=== PATIENT | female | born 1980 | race Caucasian/White ===

== ENCOUNTER → 2018-01-11 | Outpatient (CLI) | payer MEDICAID | LOC: BRMIMAGING 08:45 | PROVIDERS: ATTEND Obstetrics & Gynecology | DX: N60.01 Solitary cyst of right breast (principal) | CPT/HCPCS: 76641-PO ==

== ENCOUNTER 2018-01-27 16:19 | Emergency (ER) | payer MEDICAID ==
[2018-01-27] MEDS ORDERED: NS 1,000 ML IV ONE (16:34)
[2018-01-27] MEDS ORDERED: ONDANSETRON 4 MG/2 ML VIAL IVP ONE (16:41)
[2018-01-27] MEDS ORDERED: HYDROmorphONE/DILAUDID 2 MG/ML INJ IVP ONE (16:41)
--- NOTE | 2018-01-27 16:47 | EDPHY ---
H & P Time Seen by Provider: 01/27/18 16:30 HPI/ROS: HPI Abdominal pain. 37-year-old female by private vehicle with her mother. This patient reports right lower quadrant abdominal pain ongoing for about a month. She reports that this was attributed to a ruptured ovarian cyst. It got better but then yesterday started bothering her more. She also reports onset of epigastric and right upper quadrant pain yesterday which is not as severe. She describes the pain is coming on in waves. She describes it as crampy and achy. She reports that she has also had issues with constipation but was able to have a bowel movement today. This was described as solid and then followed by diarrhea which she has had the remainder of the day. Last menstrual period was a couple of weeks ago. Last meal was just prior to arrival this consisted of a snack bar. She has had some nausea but no vomiting. She denies any bloody or melenic stool. Significant past surgical history includes appendectomy and cholecystectomy. ROS: Constitutional: No fever, no chills. No weakness. Eyes: No discharge. No changes in vision. ENT: No sore throat. No nasal congestion or rhinorrhea. Respiratory: No cough. No shortness of breath. Cardiac: No chest pain, no palpitations. Gastrointestinal: As above. Genitourinary: No hematuria. No dysuria or increased frequency with urination. Musculoskeletal: No back pain. No neck pain. No myalgias or arthralgias. Skin: No rashes. Neurological: No headache. No focal weakness or altered sensation. Past medical history: Tubal ligation, bowel resection. As above. Social history: She is here with her mother. Denies alcohol. Nonsmoker. Physical Exam: General Appearance: Alert, she does not appear in distress. This patient is responding to questions appropriately and in full sentences. This patient appears well-hydrated and well-nourished. Eyes: Pupils equal and round no pallor or injection. No lid edema, erythema or injection. Respiratory: There are no retractions, lungs are clear to auscultation with good air movement bilaterally. Cardiovascular: Regular rate and rhythm. No murmur. Gastrointestinal: Abdomen is soft with mild and vague tenderness on palpation of the right lower quadrant, no tenderness on palpation of the right upper quadrant, epigastric or remainder of the abdomen, no masses, bowel sounds normal. No focal tenderness at Burney's point. No Mota sign. Neurological: Motor sensory function is grossly intact. Cranial nerves are normal. Gait is normal. Skin: Warm and dry, no rashes. Musculoskeletal: Neck is supple and nontender. Extremities are symmetrical. All joints range without pain or impingement. Psychiatric: No agitation. No depression. Database: EKG: Imaging: Upright abdominal x-ray series: Significant for constipation. No free air. No obstructive process. Interpreted by me. Pelvic complete ultrasound: No evidence of torsion. This is a normal study. Results were discussed with staff radiologist Dr. Sebastian Wesley. Procedures: Emergency department course: Triage vital signs reviewed and are within normal limits. She is afebrile. IV was placed. She was placed on a monitor. She was started on IV normal saline with 1 L to be given over the next hour. She states that she cannot take NSAIDs secondary to stomach issues. She will be given 0.5 mg of IV hydromorphone initially and 4 mg of IV Zofran. This will be repeated as needed for pain. Upright abdominal x-ray to be obtained to evaluate for constipation versus obstructive process. Pelvic ultrasound also to be obtained to evaluate for ovarian cyst versus torsion. Patient consents to workup. 6:15 p.m., the patient was re-evaluated. Resting comfortably at this time. Results of diagnostic workup discussed with her. Repeat abdominal exam she is soft, nontender nondistended. Her presentation is consistent with constipation. I will send her home with magnesium citrate. She will also be prescribed a 1/2 prep of GoLYTELY should she need this for further treatment. She and her mother in agreement with this plan. Follow-up and return to emergency department precautions have been reviewed with her. All of her questions were answered. She was discharged from the emergency department in good condition. Differential Diagnosis: The differential diagnosis on this patient includes but is not limited to ovarian cysts, gastritis, constipation. Ectopic , ovarian torsion, bowel obstruction/volvulus, appendicitis, cholecystitis, pancreatitis unlikely. This represents a partial list of diagnoses considered. These considerations are based on history, physical exam, past history, reassessment and diagnostic testing. Smoking Status: Light smoker Constitutional: Initial Vital Signs Temperature (C) 36.9 C 01/27/18 16:28 Heart Rate 95 01/27/18 16:28 Respiratory Rate 16 01/27/18 16:28 Blood Pressure 119/82 H 01/27/18 16:28 O2 Sat (%) 98 01/27/18 16:28 O2 Delivery Mode Room Air Allergies/Adverse Reactions: No Known Allergies Allergy (Verified 01/27/18 16:28) Home Medications: Medication Instructions Recorded Herbals/Supplements -Info Only 01/17/18 Wellbutrin Sr 01/17/18 Peg 3350/Na Sulf,Bicarb,Cl/KCl 2,000 ml PO ONCE PRN #1 btl 01/27/18 [Golytely (RX)] Medical Decision Making - Diagnostics Imaging Results: Imaging Impressions Abdomen X-Ray 01/27/18 16:41 Impression: 1. Constipation. 2. Elongated right lobe of the liver, which could be related to a Jimenez's lobe (normal variant). Pelvic/Renal Ultrasound 01/27/18 16:41 Impression: Normal pelvic ultrasound. Findings discussed with Ranjana Tran MD 01/27/2018 at 18:16. - Data Points Laboratory Results: Laboratory Results 01/27/18 16:51 01/27/18 16:51 01/27/18 01/27/18 01/27/18 17:43 16:51 16:51 WBC RBC Hgb Hct MCV MCH MCHC RDW Plt Count MPV Neut % (Auto) Lymph % (Auto) Collier % (Auto) Eos % (Auto) Baso % (Auto) Nucleat RBC Rel Count Absolute Neuts (auto) Absolute Lymphs (auto) Absolute Monos (auto) Absolute Eos (auto) Absolute Basos (auto) Absolute Nucleated RBC Immature Gran % Immature Gran # Sodium 140 mEq/L mEq/L (135-145) Potassium 4.1 mEq/L mEq/L (3.3-5.0) Chloride 103 mEq/L mEq/L (97-110) Carbon Dioxide 24 mEq/l mEq/l (22-31) Anion Gap 13 mEq/L mEq/L (6-14) BUN 10 mg/dL mg/dL (7-23) Creatinine 0.7 mg/dL mg/dL (0.6-1.0) Estimated GFR > 60 Glucose 100 mg/dL mg/dL (70-100) Calcium 10.1 mg/dL mg/dL (8.5-10.4) Total Bilirubin 0.6 mg/dL mg/dL (0.1-1.4) Conjugated Bilirubin 0.3 mg/dL mg/dL (0.0-0.5) Unconjugated Bilirubin 0.3 mg/dL mg/dL (0.0-1.1) AST 27 IU/L IU/L (14-46) ALT 21 IU/L IU/L (9-52) Alkaline Phosphatase 49 IU/L IU/L (38-126) Total Protein 7.5 g/dL g/dL (6.3-8.2) Albumin 4.6 g/dL g/dL (3.5-5.0) Lipase 84 IU/L IU/L (23-300) Beta HCG, Qual NEGATIVE Urine Color Pending Urine Appearance Pending Urine pH Pending Ur Specific Fonda Pending Urine Protein Pending Urine Ketones Pending Urine Blood Pending Urine Nitrate Pending Urine Bilirubin Pending Urine Urobilinogen Pending Ur Leukocyte Esterase Pending Urine RBC Pending Urine WBC Pending Ur Epithelial Cells Pending Urine Glucose Pending 01/27/18 16:51 WBC 8.46 10^3/uL 10^3/uL (3.80-9.50) RBC 4.85 10^6/uL 10^6/uL (4.18-5.33) Hgb 14.6 g/dL g/dL (12.6-16.3) Hct 41.6 % % (38.0-47.0) MCV 85.8 fL fL (81.5-99.8) MCH 30.1 pg pg (27.9-34.1) MCHC 35.1 g/dL g/dL (32.4-36.7) RDW 12.6 % % (11.5-15.2) Plt Count 333 10^3/uL 10^3/uL (150-400) MPV 9.0 fL fL (8.7-11.7) Neut % (Auto) 67.1 % % (39.3-74.2) Lymph % (Auto) 23.9 % % (15.0-45.0) Collier % (Auto) 7.1 % % (4.5-13.0) Eos % (Auto) 1.3 % % (0.6-7.6) Baso % (Auto) 0.5 % % (0.3-1.7) Nucleat RBC Rel Count 0.0 % % (0.0-0.2) Absolute Neuts (auto) 5.68 10^3/uL 10^3/uL (1.70-6.50) Absolute Lymphs (auto) 2.02 10^3/uL 10^3/uL (1.00-3.00) Absolute Monos (auto) 0.60 10^3/uL 10^3/uL (0.30-0.80) Absolute Eos (auto) 0.11 10^3/uL 10^3/uL (0.03-0.40) Absolute Basos (auto) 0.04 10^3/uL 10^3/uL (0.02-0.10) Absolute Nucleated RBC 0.00 10^3/uL 10^3/uL (0-0.01) Immature Gran % 0.1 % % (0.0-1.1) Immature Gran # 0.01 10^3/uL 10^3/uL (0.00-0.10) Sodium Potassium Chloride Carbon Dioxide Anion Gap BUN Creatinine Estimated GFR Glucose Calcium Total Bilirubin Conjugated Bilirubin Unconjugated Bilirubin AST ALT Alkaline Phosphatase Total Protein Albumin Lipase Beta HCG, Qual Urine Color Urine Appearance Urine pH Ur Specific Fonda Urine Protein Urine Ketones Urine Blood Urine Nitrate Urine Bilirubin Urine Urobilinogen Ur Leukocyte Esterase Urine RBC Urine WBC Ur Epithelial Cells Urine Glucose Medications Given: Discontinued Medications Hydromorphone HCl (Dilaudid) 0.5 mg IVP EDNOW ONE Stop: 01/27/18 16:42 Last Admin: 01/27/18 17:43 Dose: 0.5 mg Sodium Chloride (Ns) 1,000 mls @ 0 mls/hr IV EDNOW ONE; Wide Open PRN Reason: Protocol Stop: 01/27/18 16:35 Last Admin: 01/27/18 17:42 Dose: 1,000 mls Magnesium Citrate (Magnesium Citrate) 300 ml PO ONCE ONE Stop: 01/27/18 17:58 Last Admin: 01/27/18 18:11 Dose: 1 btl Ondansetron HCl (Zofran) 4 mg IVP EDNOW ONE Stop: 01/27/18 16:42 Last Admin: 01/27/18 17:43 Dose: 4 mg Departure - Departure Disposition: Home, Routine, Self-Care Clinical Impression: Abdominal pain, Constipation Condition: Good Instructions: Constipation (ED) Additional Instructions: Read and follow provided instructions. Follow-up with your primary care physician in 1-2 days for re-evaluation. Take medication as prescribed for constipation. If magnesium citrate does not give you significant relief, fill prescription for 1/2 prep of GoLYTELY. Take as directed. Return to the emergency department for worsening abdominal pain, vomiting or other serious concerns. Referrals: Thais Cosby, SENIOR [employer]IC DESIGN ENGINEER [Primary Care Provider] - As per Instructions Prescriptions: Peg 3350/Na Sulf,Bicarb,Cl/KCl [Golytely (RX)] 2,000 ml PO ONCE PRN #1 btl PRN Reason: Constipation
[2018-01-27 17:02] LABS: PLATELET COUNT 333 10^3/uL (150-400)
[2018-01-27] MEDS ORDERED: MAGNESIUM CITRATE 300 ML BOTTLE PO ONE (17:57)
[2018-01-27 18:13] VITALS: BP 131/83
== END 2018-01-27 18:33 | disposition home or self-care (01) ==
DX: K59.00 Constipation, unspecified (principal)
CPT/HCPCS: 96374; J1170; J2405

== ENCOUNTER 2018-04-05 07:19 | Observation (INO) | payer MEDICAID ==
--- NOTE | 2018-04-04 16:59 | PDGENHP ---
History and Physical - Chief Complaint Preop: ANGUS Malloy, cysto - History of Present Illness Alvin is a 37 yo who originally saw me in clinic regarding abnormal pap , long history of menorrhagia and dysmenorrhea and ovarian cyst. 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 She had a negative EBX early in 2018. She also had a 4cm left ovarian cyst by US earlier in the year which resolved on its own on subsequent US here with our clinic. Ultimately her US was otherwise negative for fibroids or other obvious anatomic pathology - but still very bothered by severe dymenorrhea and heavy/ unpredictable periods. Currently on OCPs (Ashley) which are not helping. Has tried and filed other OCP's in the past as well as IUD. Very interested in hysterectomy. H/o two ectopic pregnancies in the past and has since had a tubal ligation - also does not want a failure of BC and having to deal with another ectopic potentially. History Information - Allergies/Home Medication List Allergies/Adverse Reactions: No Known Allergies Allergy (Verified 01/27/18 16:28) Home Medications: Bupropion HCl [Wellbutrin Xl] 300 mg PO DAILY 01/17/18 [Last Taken Unknown] I have personally reviewed and updated: family history, medical history, social history, surgical history - Past Medical History Additional medical history: Chronic conspitation, h/o ectopic , h/o abnormal pap, dysmenorrhea, abnormal uterine bleeding. Also anxiety - Surgical History Additional surgical history: 2002 (Appendectomy requiring partial bowel resection). 2011 Cholecystectomy LS. 2011 Tubal ligation - Family History Additional family history: Breast - Grandmother, "late 20s". Colon - Grandmother - Social History Smoking Status: Former smoker Alcohol Use: Occasionally Drug Use: None Review of Systems Review of Systems: ROS: 10pt was reviewed & negative except for what was stated in HPI & below Physical Exam Physical Exam: In office: NAD, WD WN Belly is soft, old surgical scars well healed Lab Data & Imaging Review Laboratory Tests 01/06/18 01/27/18 01/27/18 10:24 14:24 16:51 Hgb Hct Creatinine 0.7 Iron 92.0 TIBC 476 Iron Saturation 19 L AST 27 ALT 21 Alkaline Phosphatase 49 Amylase 62 Lipase 84 TSH 1.900 04/01/18 13:34 Hgb 13.8 Hct 41.7 Creatinine Iron TIBC Iron Saturation AST ALT Alkaline Phosphatase Amylase Lipase TSH Imaging Review: [facility] X Ray [facility] [place] [address] [phone] Pt Name: ALVIN LARSON Report Number: [id number] : Unit Number: [id number] Ordering Phys: Ranjana Tran MD Pt Type: REG ER Date of Service: 01/27/18 Acct Num: [id number] X Ray Abdomen 1 View Upright Abdomen History: Abd Pain. Comparison: None available. Findings : Moderate stool is present in the proximal and transverse colon. Bowel gas pattern is otherwise normal. There is no free air. The right lobe of the liver is elongated. No definite renal or ureteral calcifications are identified. Mild rightward curvature of the lumbar spine is present. Cholecystectomy clips are present. Impression: 1. Constipation. 2. Elongated right lobe of the liver, which could be related to a Jimenez's lobe (normal variant). Assessment & Plan Assessment: Preop: RaTLH, BS, cysto - for AUB and dysmenorrhea - Weight-based Ancef, routine pre-op orders. - No labs needed morning of. - Pyridium 200mg PO x 1 PREOP. - Will stay overnight likely 1 night. - RBA discussed and consents signed in clinic. SAURABH
[2018-04-05] MEDS ORDERED: ceFAZolin 2 GM/DEXTROSE 100 ML IV ONE (07:27)
[2018-04-05] MEDS ORDERED: LR 1,000 ML IV ONE (07:27)
[2018-04-05] MEDS ORDERED: PHENAZOPYRIDINE HCL 200 MG TAB PO ONE (07:27)
[2018-04-05] MEDS ORDERED: MIDAZOLAM 2 MG/2 ML VIAL IVP ONE (08:27)
[2018-04-05] MEDS ORDERED: LIDOCAINE 2% 5 ML SDV ONE (08:31)
[2018-04-05] MEDS ORDERED: ONDANSETRON 4 MG/2 ML VIAL ONE (08:31)
[2018-04-05] MEDS ORDERED: KETOROLAC 30 MG/1 ML SDV ONE (08:31)
[2018-04-05] MEDS ORDERED: DEXAMETHASONE 4 MG/ML VIAL ONE (08:31)
[2018-04-05] MEDS ORDERED: PROPOFOL/EMULSION 500 MG/50 ML BOTTLE IV ONE ×3 (08:32→10:51)
[2018-04-05] MEDS ORDERED: fentaNYL 100 MCG/2 ML INJ ONE ×3 (08:32→12:20)
--- NOTE | 2018-04-05 09:11 | PDANEPAE ---
ANE History of Present Illness abnormal uterine bleeding, here for robotic hysterectomy and BSO ANE Past Medical History - Cardiovascular History Hx Hypertension: No Hx Arrhythmias: No Hx Chest Pain: No Hx Coronary Artery / Peripheral Vascular Disease: No Hx CHF / Valvular Disease: No Hx Palpitations: No Cardiovascular History Comment: BP RUNS LOW - Pulmonary History Hx COPD: No Hx Asthma/Reactive Airway Disease: No Hx Recent Upper Respiratory Infection: No Hx Oxygen in Use at Home: No Hx Sleep Apnea: No Sleep Apnea Screening Result - Last Documented: Negative Pulmonary History Comment: QUIT SMOKING 02/03 - Neurologic History Hx Cerebrovascular Accident: No Hx Seizures: No Hx Dementia: No - Endocrine History Hx Diabetes: No - Renal History Hx Renal Disorders: No - Liver History Hx Hepatic Disorders: No - Neurological & Psychiatric Hx Hx Neurological and Psychiatric Disorders: Yes Neurological / Psychiatric History Comment: ANXIETY/DEPRESSION - Cancer History Hx Cancer: No - Congenital Disorder History Hx Congenital Disorders: No - GI History Hx Gastrointestinal Disorders: Yes Gastrointestinal History Comment: CONSTIPATION - Other Health History Other Health History: MILD ANEMIA - Chronic Pain History Chronic Pain: No - Surgical History Prior Surgeries: APPENDECTOMY. SML BOWEL RESECTION/APPY. CHOLECYSTECTOMY 2011. TUBAL LIG 2011. TONSILLECTOMY ANE Review of Systems Review of Systems: - Exercise capacity METS (RN): 4 METS ANE Patient History - Allergies Allergies/Adverse Reactions: No Known Allergies Allergy (Verified 01/27/18 16:28) - Home Medications Home Medications: Bupropion HCl [Wellbutrin Xl] 300 mg PO DAILY 01/17/18 [Last Taken 04/05/18 06: 00] - NPO status NPO Since - Liquids (Date): 04/05/18 NPO Since - Liquids (Time): 06:00 NPO Since - Solids (Date): 04/04/18 NPO Since - Solids (Time): 22:00 - Smoking Hx Smoking Status: Former smoker - Alcohol Use Alcohol Use: Occasionally - Family Anes Hx Family Hx Anesthesia Complications: SISTER SLOW TO AWAKEN ANE Labs/Vital Signs - Vital Signs Blood Pressure: 116/78 Heart Rate: 84 Respiratory Rate: 14 O2 Sat (%): 96 Height: 167.64 cm Weight: 65.771 kg ANE Physical Exam - Airway Neck exam: FROM Mallampati Score: Class 1 Mouth exam: poor dentition - Pulmonary Pulmonary: no respiratory distress - Cardiovascular Cardiovascular: regular rate and rhythym - ASA Status ASA Status: II ANE Anesthesia Plan Anesthesia Plan: general endotracheal anesthesia Total IV Anesthesia: Yes
[2018-04-05] MEDS ORDERED: SCOPOLAMINE HYDROBROMIDE 1 MG/3 DAYS PATCH TD SCH (09:15)
[2018-04-05] MEDS ORDERED: BUPIVACAINE/EPI 0.5% 30 ML SDV ONE (09:31)
[2018-04-05] MEDS ORDERED: SUGAMMADEX SODIUM 200 MG/2 ML VIAL IVP ONE (11:46)
[2018-04-05] MEDS ORDERED: NALOXONE HCL 0.4 MG/ML INJ IVP PRN (11:52)
[2018-04-05] MEDS ORDERED: MEPERIDINE 25 MG/0.5 ML AMP IVP PRN (11:52)
[2018-04-05] MEDS ORDERED: LR 500 ML IV PRN (11:52)
[2018-04-05] MEDS ORDERED: ACETAMINOPHEN 500 MG TAB PO PRN (11:52)
[2018-04-05] MEDS ORDERED: oxyCODONE IR 5 MG TAB PO PRN (11:52)
[2018-04-05] MEDS ORDERED: HYDROmorphONE/DILAUDID 2 MG/ML INJ ONE (12:20)
[2018-04-05] MEDS ORDERED: DIAZEPAM 5 MG/ML 1 ML SYR ONE (12:20)
--- NOTE | 2018-04-05 12:20 | POSTANESTH ---
Post Anesthetic Evaluation Cardiovascular Status: Normal, Stable Respiratory Status: Normal, Stable Level of Consciousness/Mental Status: Can Participate in Eval, Moderately Sleepy Pain Control: Adequate, Prn Tx Ordered Nausea/Vomiting Control: Adequate, Prn Tx Ordered Complications Possibly Related to Anesthesia: None Noted
[2018-04-05] MEDS: fentaNYL 100 MCG/2 ML INJ IVP PRN ×2 (12:22→12:33)
[2018-04-05] MEDS: DIAZEPAM 5 MG/ML 1 ML SYR IVP PRN ×2 (12:24→13:04)
--- NOTE | 2018-04-05 12:27 | POSTOPPROG ---
Post Op Note Date of Operation: 04/05/18 Surgeon: Tyler Bob Senior Technical Editor: Emily Barron MD Anesthesiologist: Lashay Johnson Anesthesia: GET(General Endotracheal) Pre-op Diagnosis: Dysmenorrhea, AUB Post-op Diagnosis: Same Procedure: Robotically-assisted TLH, BS, cysto Findings: Normal uterus, L tube previous removed (partially), normal R tube and ovs Inf/Abcess present in the surg proc area at time of surgery?: No EBL: Minimal Complications: None Specimen(s): Uterus, cervix, right fallopian tube, left fallopian tube segment
--- NOTE | 2018-04-05 12:30 | SUROPNOTE ---
[facility] Operative Report - Surgery Date of Operation: 04/05/18 Surgeon: Tyler Bob Wireline Supervisor: Emily Barron MD Anesthesiologist: Lashay Johnson Anesthesia: GET(General Endotracheal) Pre-op Diagnosis: Dysmenorrhea, AUB Post-op Diagnosis: Same Procedure: Robotically-assisted TLH, BS, cysto Findings: Normal uterus, L tube previous removed (partially), normal R tube and ovs Inf/Abcess present in the surg proc area at time of surgery?: No EBL: Minimal Complications: None Specimen(s): Uterus, cervix, right fallopian tube, left fallopian tube segment Technique: The patient was taken to the operating room where general anesthesia induced with an endotracheal tube. A time-out was performed. She was given weight-based antibiotics before any incisions were made. She was positioned in low lithotomy in yellow-fin stirrups and an exam under anesthesia was performed. She was prepped and draped in normal sterile fashion. A Chavarria catheter and uterine manipulator ()were placed. Turning our attention to port placement, we began by marking and then injecting local anesthetic subcutaneously at our planned trocar sites. An 8mm incision was then made in the base of the umbilicus. A veress needle was placed intraabdominally while tenting up on the abdominal wall. Saline drop test was used to suggest intra-abdominal placement as well as low opening insufflation pressures. The abdomen was insufflated to 15 mmHg with CO2 gas. A robotic 8 mm camera trocar was then placed into the abdominal cavity directly with ease. Camera inserted and a scan of the abdominal cavity revealed no evidence of injury upon entry. Additional lateral ports were placed evenly space in an arc from that umbilical site - in total, all robotic 8mm ports except one 5mm human assist port in the LUQ. The patient was placed in steep Trendelenburg position and bowel flipped cephalad to provide excellent visualization of pelvic structures. Upon inspection of the abdomen, findings were as noted above. The robot was side-docked at the patient's hip and instruments introduced into the abdomen under direct visualization. Monopolar scissors as well as fenestrated bipolar forceps were used in addition to a tip-up grasper for the fourth arm. We began by directly visualizing peristalsing ureters on both sides - distant from our planned dissection sites. We first began by elevating and amputation the right fallopian tube using combination of monopolar and bipolar energy as well as cold scissors. Following this we came through the right utero -ovarian ligament and the right round - the anterior and posterior leaves of the broad ligament. Tho posterior leaf was brought down to the colpotomy cup and the anterior was brought down to the level of the peritoneal bladder reflection and then across to start the bladder flap to the midline. The uterine arteries on that side were skeletonized and cauterized, but not divided yet. We next turned our attention of the left side where the same procedure was performed in the same fashion - amputating the left tube, coming through the left lateral attachments to the uterus, and coming across with the anterior leaf of the broad on the left side to meet the dissection on the right completing the bladder flap. Then completed careful dissection of the bladder off the lower uterine segment and cervix which came down nicely with minimal scar tissue. The left uterines were skeletonized, cauterized and then divided. We lastly divided the right uterines. Following this the colpotomy cup was nicely visible circumferentially. The monopolar scissors were used to create the colpotomy - combination of cut and coag current. The uterus was removed vaginally with both fallopian tubes without issue. A OLGA drainage bulb with a Vloc suture within it was placed in the vagina to maintain pneumoperitoneum during cuff closer. The suture was retrieved laparoscopically from the bulb - 180 0-Vlock and the vaginal cuff was closed laparoscopically with a single running stitch with care taken to include healthy bites of bilateral uterosacral ligaments to help prevent against future prolapse. The vaginal cuff and pedicles were then irrigated with normal saline and found to be hemostatic. Both ureters were seen to be freely peristalsing, distant from any surgical sites. The robot was undocked. The chavarria was removed. Cystoscopy was performed confirming intact bladder with no apparent thermal or sharp injuries. Bilateral UOs demonstrated strong efflux of Pyridium-stained urine. Following this the chavarria was not replaced, a vaginal packing was not placed. The trocars were removed and the abdomen was desufflated. The skin incisions were closed with 40 monocryl with single subcuticular stitches and then covered with Dermabond. The patient tolerated the procedure well. All sponge, lap and needle and instrument counts were announced as correct x2. The patient was taken to the PACU in stable condition. I was scrubbed and present for the entire case.
[2018-04-05] MEDS ORDERED: ZOLPIDEM TARTRATE 5 MG TAB PO PRN (12:31)
[2018-04-05] MEDS ORDERED: ONDANSETRON 4 MG/2 ML VIAL IVP PRN (12:31)
[2018-04-05] MEDS ORDERED: KETOROLAC 30 MG/1 ML SDV IVP ONE (12:31)
[2018-04-05] MEDS ORDERED: ONDANSETRON DISINTEGRATING 4 MG TAB PO PRN (12:31)
[2018-04-05] MEDS: HYDROmorphONE/DILAUDID 2 MG/ML INJ IVP PRN ×4 (12:34→13:47)
[2018-04-05] MEDS ORDERED: BISACODYL 10 MG SUPP PR PRN (12:39)
[2018-04-05] MEDS ORDERED: MAGNESIUM HYDROXIDE 30 ML UDCUP PO PRN (12:39)
[2018-04-05] MEDS ORDERED: POLYETHYLENE GLYCOL 3350 17 GM PKT PO PRN (12:39)
[2018-04-05] MEDS ORDERED: LACTULOSE 20 GM/30 ML UDCUP PO PRN (12:39)
[2018-04-05] MEDS ORDERED: D5W LR 1,000 ML IV SCH (12:45)
[2018-04-05] MEDS ORDERED: ACETAMINOPHEN 500 MG TAB ONE (13:16)
[2018-04-05] MEDS: ACETAMINOPHEN 500 MG TAB PO SCH ×2 (13:20→19:48)
[2018-04-05] MEDS ORDERED: PROMETHAZINE HCL 25 MG/ML INJ ONE (13:39)
[2018-04-05] MEDS: PROMETHAZINE HCL 25 MG/ML INJ IVP PRN ×2 (13:41→13:48)
[2018-04-05] MEDS ORDERED: IBUPROFEN 600 MG TAB PO SCH (14:00)
[2018-04-05] MEDS: HYDROmorphONE/DILAUDID 1 MG/ML INJ IVP PRN ×2 (15:25→20:37)
[2018-04-05] MEDS: KETOROLAC 30 MG/1 ML SDV IVP SCH ×2 (17:56→23:42)
[2018-04-05] MEDS: oxyCODONE IR 5 MG TAB PO PRN ×3 (17:57→23:43)
[2018-04-05] MEDS: SENNOSIDES/DOCUSATE SODIUM TAB PO SCH (19:39)
[2018-04-06] MEDS: oxyCODONE IR 5 MG TAB PO PRN ×3 (05:09→13:14)
[2018-04-06] MEDS: ACETAMINOPHEN 500 MG TAB PO SCH ×2 (05:10→12:30)
[2018-04-06] MEDS: KETOROLAC 30 MG/1 ML SDV IVP SCH ×2 (05:13→12:31)
[2018-04-06 08:12] VITALS: BP 108/69
[2018-04-06] MEDS ORDERED: buPROPion 100 MG TAB PO SCH (09:00)
[2018-04-06] MEDS ORDERED: ENOXAPARIN 40 MG/0.4 ML SYR SC SCH (09:00)
[2018-04-06] MEDS ORDERED: buPROPion XL 150 MG TAB PO SCH (09:00)
[2018-04-06] MEDS: SENNOSIDES/DOCUSATE SODIUM TAB PO SCH (09:37)
--- NOTE | 2018-04-06 12:07 | SOAPPROG ---
SOAP Progress Note Assessment/Plan: Assessment: POD1 s/p RaTLH, BS, cysto for dysmenorrhea, abnormal uterine bleeding. - H/H looks reassuring, no bleeding. - VS WNL and stable, tolerating diet. - OK for home today, fu with me in 2 and 6 wks. SAURABH Subjective: Feeling good - some vague lower abdominal pain, incisions not bothering her. Tolerating diet. Objective: Vital Signs Temp Pulse Resp BP Pulse Ox 36.9 C 75 16 108/69 95 04/06/18 07:45 04/06/18 07:45 04/06/18 07:45 04/06/18 07:45 04/06/18 07:45 Laboratory Results 04/06/18 05:20 04/05/18 04/06/18 04/07/18 05:59 05:59 05:59 Intake Total 3800 Output Total 1120 Balance 2680 Physical Exam - Physical Exam General Appearance: WD/WN, alert, no apparent distress Abdomen: non-tender, soft, other (Incisions CDI dermabond), No distended ICD10 Worksheet Patient Problems: Problems Problem Status Onset Abnormal uterine bleeding (AUB) Acute Dysmenorrhea Acute - ICD10 Problem Qualifiers (1) Dysmenorrhea (2) Abnormal uterine bleeding (AUB)
--- NOTE | 2018-04-06 12:14 | PDDCSUM ---
Discharge Summary Discharge Summary: Date of Admission: 04/05/18 Date of Discharge: 04/06/18 Admitting Diagnosis: 1. Dysmenorrhea 2. Abnormal uterine bleeding Discharge Diagnosis: 1. Same Procedures: 1. Robotically-assisted TLH, BS, cysto Hospital Course: Pratima was admitted on the day of surgery Consultations: None Condition: Excellent Disposition: Home w/ family support New Discharge Medications: [place] 5/325, Take 1-2 tabs PO q4hrs PRN for pain, #30 Continue scheduled ibuprofen and Tylenol per discharge instructions. Continue bowel regimen PRN per discharge instructions. Discharge Instructions: See discharge instruction sheet. Pending Studies: None Follow-up:
[2018-04-06] MEDS ORDERED: IBUPROFEN 600 MG TAB PO SCH ×2 (12:35→14:00)
[2018-04-08] MEDS ORDERED: PATCH REMOVAL 1 EA PATCH TD SCH (09:11)
== END 2018-04-06 12:30 | disposition home or self-care (01) ==
LOC: F3E 07:19 → FOB 14:50
PROVIDERS: ADMIT Obstetrics & Gynecology; ATTEND Obstetrics & Gynecology
PROC: 0TJ98ZZ Inspection of Ureter, Via Natural or Artificial Opening Endoscopic (ICD-10-PCS; principal; 2018-04-05 09:15)
PROC: 8E0W4CZ Robotic Assisted Procedure of Trunk Region, Percutaneous Endoscopic Approach (ICD-10-PCS; principal; 2018-04-05 09:15)
PROC: 0UT7FZZ Resection of Bilateral Fallopian Tubes, Via Natural or Artificial Opening With Percutaneous Endoscopic Assistance (ICD-10-PCS; principal; 2018-04-05 09:15)
PROC: 0UT9FZZ Resection of Uterus, Via Natural or Artificial Opening With Percutaneous Endoscopic Assistance (ICD-10-PCS; principal; 2018-04-05 09:15)
DX: N94.6 Dysmenorrhea, unspecified (principal); N93.8 Other specified abnormal uterine and vaginal bleeding; K59.09 Other constipation; F41.9 Anxiety disorder, unspecified; K76.89 Other specified diseases of liver
CPT/HCPCS: 58571; G0378; J0690; J1100; J1170; J1650; J1885; J2250; J2405; J2550; J2704; J3010; J3360

== ENCOUNTER 2018-04-25 20:22 | Emergency (ER) | payer MEDICAID ==
[2018-04-25] MEDS ORDERED: HYDROmorphONE/DILAUDID 2 MG/ML INJ IVP ONE (21:52)
--- NOTE | 2018-04-25 21:53 | EDPHY ---
HPI/HX/ROS/PE/MDM Narrative: CLINICAL IMPRESSION: Right lower quadrant pain, vaginal bleeding ASSESSMENT/PLAN: Patient is a 37-year-old female who is 20 days status post robotically assisted total laparoscopic hysterectomy, bilateral salpingectomy and cystoscopy with a history of abnormal uterine bleeding and dysmenorrhea who presents to the emergency department with vaginal bleeding and lower abdominal pain. Patient is afebrile, in mild distress however not toxic appearing. Her abdomen was soft and nondistended, healing laparoscopic incisions without evidence of infection. She had tenderness to palpation in the right lower quadrant without rebound or guarding. CBC revealed mild leukocytosis of 10.5. Her vital signs were reviewed and there was no evidence of sepsis or serious bacterial illness. CMP grossly unremarkable without evidence of acute metabolic abnormality, acute a KI, acute hepatobiliary obstruction or acute hepatitis. CT abdomen and pelvis revealed no acute intra-abdominal findings. It is unclear the exact etiology of her right lower quadrant pain and scant, intermittent vaginal bleeding. There were no clinical findings to suggest postoperative complication, abscess, appendicitis, cholecystitis, kidney stone, pyelonephritis, perforated viscus, hernia, mesenteric ischemia, TOA, PID or ovarian torsion. She was given IV fluids, Zofran and narcotic with improvement of her symptoms. On repeat examination the patient is well-appearing and in no acute distress. Her abdomen was soft with very mild tenderness to palpation in the right lower quadrant, no peritoneal signs or evidence of a surgical abdomen. I called OBGYN in spoke with Dr. Simeon, we discussed all findings to this point and she had no further recommendations this evening. The patient will call tomorrow morning and schedule a follow-up appointment with Dr. Bob tomorrow. Conservative return precautions discussed-patient will return for development of fever, vomiting, signs of dehydration, chest pain, shortness of breath, worsening or uncontrolled abdominal pain, increased her significant vaginal bleeding or for any other concerning symptom. Patient verbalizes understanding is she is in agreement with this plan. Case, results and plan of care discussed with Dr. Lyles and Dr. Benitez. DIFFERENTIAL DX: Abdominal pain in a female including but not limited to ovarian cyst, pelvic inflammatory disease, ovarian torsion, TOA, postsurgical complication, abscess, perforation and appendicitis. ED COURSE: 9:52 p.m.: Case discussed with Dr. Lyles 11:40 p.m.: Case discussed with Dr. Benitez 11:50 p.m.: Case discussed with on-call OBGYN Dr. Simeon, patient considered stable for discharge and close follow-up tomorrow with Dr. Bob. CHIEF COMPLAINT: Nausea, vaginal bleeding and right lower quadrant pain HPI: Patient is a 37-year-old female who is 20 days status post robotically assisted total laparoscopic hysterectomy, bilateral salpingectomy and cystoscopy with a history of abnormal uterine bleeding and dysmenorrhea who presents to the emergency department with vaginal bleeding and lower abdominal pain. Patient reports she has been doing fairly well since her surgery, nearly pain free up until 2 days ago. Patient reports a scant amount of vaginal bleeding as well as intermittent right-sided abdominal pain. Patient reports on Wednesday she had very mild bleeding as well as intermittent pain which essentially went away. Today she reports the pain started again and when she sat on the toilet she started to notice some small blood clots in the toilet. When she wiped there was a scant amount of blood on the toilet paper. She has since been having mostly constant right-sided cramping with intermittent sharp sensations traveling down into her groin. She feels that it is similar to when she has had cramping associated to menstruation. Throughout a 24 hr. She has only changed 1 pad. She denies any fevers, chills, chest pain or shortness of breath. She reports low-grade nausea however has had no vomiting. She denies any vaginal discharge. Bowel movements have been normal and regular, no melena or hematochezia. She denies any urinary complaints to include dysuria, hematuria or increased frequency. Patient took Aleve around 4:00 p.m. With very little relief of her pain. PMH: Abnormal uterine bleeding, dysmenorrhea Pertinent Past Surgical History: Robotic assisted total laparoscopic hysterectomy, BS, cystoscopy, appendectomy, cholecystectomy Family History: Noncontributory Social History: Denies alcohol, denies illicit drug use and denies smoking REVIEW OF SYSTEMS: All other systems negative Constitutional: No fever, no chills, appetite change. Eyes: No discharge, vision change ENT: No sore throat, congestion, ear pain. Cardiovascular: No chest pain, no palpitations. Respiratory: No cough, no shortness of breath. Gastrointestinal: Nausea, right lower quadrant pain. No vomiting or diarrhea. Genitourinary: Vaginal bleeding. No dysuria or hematuria. Musculoskeletal: No back pain, joint swelling, joint pain, myalgias. Skin: No rashes, color change. Neurological: No headache, dizziness, weakness. PHYSICAL EXAM: General Appearance: Alert, oriented, appropriate, cooperative, mild distress, well hydrated, non-toxic appearing, VSS, no hypoxia. HENT: Normocephalic, atraumatic. External ears are normal. Nares clear, mucosa pink. Oropharynx is clear and moist, uvula is midline. Eyes: PERRLA, no acute vision change, nystagmus, swelling, discharge, pain or photosensitivity. Conjunctiva pink, no pallor or injection Neck: Supple, nontender, no lymphadenopathy, no midline pain, FROM, no meningismus. Respiratory: There are no retractions, lungs are clear to auscultation. Cardiac: Regular rate and rhythm, no murmurs or gallops. Gastrointestinal: Abdomen is soft, bowel sounds normal, no masses/hernia. Healing laparoscopic incisions, no induration or surrounding erythema. No drainage. Patient with tenderness to palpation in her right lower quadrant without rebound or guarding. Neurological: Alert and oriented x 3, CN 2-12 grossly intact, normal gait no ataxia, DTR's intact, normal sensation and strength Skin: Warm, dry, no rashes, no nodules on palpation. Musculoskeletal: Extremities are symmetrical, full range of motion, no tenderness, deformity, swelling, or erythema. Psychiatric: Patient is oriented X 3, there is no agitation. MEDICAL DECISION MAKING: Patient was seen independently. Secondary supervising physician at time of evaluation was Dr. Lyles and Dr. Benitez. Diagnosis: Nausea, right lower quadrant pain. New, requires workup Summary: See Assessment and Plan for summary of ED visit Clinical lab tests: ordered / reviewed. Independent visualization of images, tracing, or specimens: Yes. Decision to obtain medical records or history from someone other than the patient: Yes Review / Summarize previous medical records: Yes Discussed patient with another provider: Yes, on-call OBGYN, Dr. Lyles and Dr. Benitez. Patient Progress: Improved, stable and discharged home. - Data Points Imaging Results: Imaging Impressions Abdomen CT 04/25/18 21:52 Impression: 1. No acute findings in the abdomen or pelvis. 2. Mild stool in the proximal colon. 3. Additional findings as above. Findings discussed with FRANCISCO Green 04/25/2018 at 23:06. Laboratory Results: Laboratory Results 04/25/18 21:30 04/25/18 21:30 04/25/18 04/25/18 04/25/18 21:30 21:30 21:30 WBC 10.28 10^3/uL H 10^3/uL (3.80-9.50) RBC 4.98 10^6/uL 10^6/uL (4.18-5.33) Hgb 14.6 g/dL g/dL (12.6-16.3) Hct 43.4 % % (38.0-47.0) MCV 87.1 fL fL (81.5-99.8) MCH 29.3 pg pg (27.9-34.1) MCHC 33.6 g/dL g/dL (32.4-36.7) RDW 12.5 % % (11.5-15.2) Plt Count 393 10^3/uL 10^3/uL (150-400) MPV 8.8 fL fL (8.7-11.7) Neut % (Auto) 67.9 % % (39.3-74.2) Lymph % (Auto) 22.8 % % (15.0-45.0) [place] % (Auto) 5.7 % % (4.5-13.0) Eos % (Auto) 2.6 % % (0.6-7.6) Baso % (Auto) 0.6 % % (0.3-1.7) Nucleat RBC Rel Count 0.0 % % (0.0-0.2) Absolute Neuts (auto) 6.98 10^3/uL H 10^3/uL (1.70-6.50) Absolute Lymphs (auto) 2.34 10^3/uL 10^3/uL (1.00-3.00) Absolute Monos (auto) 0.59 10^3/uL 10^3/uL (0.30-0.80) Absolute Eos (auto) 0.27 10^3/uL 10^3/uL (0.03-0.40) Absolute Basos (auto) 0.06 10^3/uL 10^3/uL (0.02-0.10) Absolute Nucleated RBC 0.00 10^3/uL 10^3/uL (0-0.01) Immature Gran % 0.4 % % (0.0-1.1) Immature Gran # 0.04 10^3/uL 10^3/uL (0.00-0.10) Sodium 137 mEq/L mEq/L (135-145) Potassium 3.7 mEq/L mEq/L (3.5-5.2) Chloride 103 mEq/L mEq/L (97-110) Carbon Dioxide 23 mEq/l mEq/l (22-31) Anion Gap 11 mEq/L mEq/L (6-14) BUN 11 mg/dL mg/dL (7-23) Creatinine 0.8 mg/dL mg/dL (0.6-1.0) Estimated GFR > 60 Glucose 88 mg/dL mg/dL (70-100) Calcium 9.7 mg/dL mg/dL (8.5-10.4) Total Bilirubin 0.2 mg/dL mg/dL (0.1-1.4) AST 25 IU/L IU/L (14-46) ALT 21 IU/L IU/L (9-52) Alkaline Phosphatase 86 IU/L IU/L (38-126) Total Protein 7.8 g/dL g/dL (6.3-8.2) Albumin 4.8 g/dL g/dL (3.5-5.0) Beta HCG, Qual NEGATIVE Medications Given: Ondansetron HCl (Zofran) 4 mg IVP Q4 PRN PRN Reason: Nausea/Vomiting, Can't Take PO Stop: 10/22/18 21:51 Last Admin: 04/25/18 22:06 Dose: 4 mg Discontinued Medications Hydromorphone HCl (Dilaudid) 0.5 mg IVP EDNOW ONE Stop: 04/25/18 21:53 Last Admin: 04/25/18 22:09 Dose: 1 mg Sodium Chloride (Ns) 1,000 mls @ 0 mls/hr IV ONCE ONE PRN Reason: Wide Open Stop: 04/25/18 22:02 Last Admin: 04/25/18 22:06 Dose: 1,000 mls General Initial Vital Signs: Initial Vital Signs Temperature (C) 36.9 C 04/25/18 20:30 Heart Rate 92 04/25/18 20:30 Respiratory Rate 16 04/25/18 20:30 Blood Pressure 119/80 04/25/18 20:30 O2 Sat (%) 98 04/25/18 20:30 O2 Delivery Mode Room Air Allergies/Adverse Reactions: No Known Allergies Allergy (Verified 04/25/18 20:33) Home Medications: Medication Instructions Recorded Bupropion HCl [Wellbutrin Xl] 300 mg PO DAILY 01/17/18 Departure - Departure Disposition: Home, Routine, Self-Care Clinical Impression: Vaginal bleeding Abdominal pain Qualifiers: Abdominal location: right lower quadrant Qualified Code(s): R10.31 - Right lower quadrant pain Condition: Good Instructions: Abdominal Pain (ED) Additional Instructions: DISCHARGE INSTRUCTIONS FROM YOUR DOCTOR Thank you for visiting our emergency department today. Please keep in mind that discharge from the emergency department does not mean that there is nothing wrong - it simply means that we have not identified an emergency condition that requires further evaluation or treatment in the hospital. Y Rest, push non-diuretic, non-caffeinated fluids, clear liquid diet, then a BRAT diet (bananas, rice, applesauce, toast), then slowly advance diet to normal. Attempt small frequent meals. You have been given Percocet, this will and may make you drowsy. Do not drive or operate machinery while taking this medication. It can also cause constipation, take 100 mg of Colace twice a day while taking this medication. There is Tylenol in this medication, be careful how much Tylenol your taking and do not exceed 4000 mg in a 24 hr period. For pain control: You may take Tylenol, I recommend 500-1000 mg every 6-8 hours as needed. Take with food and a full glass of water. Stop taking if this is upsetting her stomach. Do not exceed 4000 mg in a 24 hr period. You may also take ibuprofen, recommend 400 mg every 6 hr. Take with food and a full glass of water. Stop taking if this upsets her stomach. Do not exceed 2400 mg in a 24 hr period. Do not take ibuprofen until tomorrow as he received Toradol in the emergency department. Please call your candlemaker in the morning and be seen tomorrow. Return for increased or unmanageable pain, new site or character of pain, flank pain, groin pain, pelvic pain, development of fever, chills, recurrent vomiting , vomiting blood or coffee grounds, diarrhea, constipation, bloody stools, black tarry stools, burning or pain with urination, bloody urine, inability to urinate, decreased urine output or other signs of dehydration, dizziness, weakness, fainting, difficulty breathing or swallowing, chest pain, or for any other new, worsening or worrisome symptoms. People present with illnesses and injuries in different ways, and it is always possible that we have missed something. You may always return for re-evaluation if symptoms worsen or if they are not improving or if you develop new/different symptoms. Again, thank you for choosing our emergency department. We hope that you feel better. Referrals: Thais Cosby NP [Primary Care Provider] - As per Instructions Tyler Bob MD [Medical Doctor] - 1 day without fail
[2018-04-25] MEDS ORDERED: NS 1,000 ML IV ONE (22:01)
[2018-04-25 22:02] LABS: PLATELET COUNT 393 10^3/uL (150-400)
[2018-04-25] MEDS: ONDANSETRON 4 MG/2 ML VIAL IVP PRN (22:06)
[2018-04-25] MEDS ORDERED: IOPAMIDOL (ISOVUE 370) 100 ML BTL IV ONE (22:16)
[2018-04-25] MEDS ORDERED: KETOROLAC 30 MG/1 ML SDV IVP ONE (23:33)
[2018-04-25] MEDS ORDERED: OXYCODONE/APAP 5/325 TAB PO ONE (23:33)
[2018-04-25] MEDS ORDERED: OXYCODONE/APAP 5/325MG PREPACK#4 BTL TAKEHOME ONE (23:35)
[2018-04-26] MEDS: ONDANSETRON 4 MG/2 ML VIAL IVP PRN (00:11)
[2018-04-26 00:17] VITALS: BP 129/94
== END 2018-04-26 00:17 | disposition home or self-care (01) ==
DX: N93.9 Abnormal uterine and vaginal bleeding, unspecified (principal); R10.31 Right lower quadrant pain
CPT/HCPCS: 96374; J1170; J1885; J2405; Q9967

== ENCOUNTER 2018-06-08 09:36 | Emergency (ER) | payer MEDICAID ==
--- NOTE | 2018-06-08 09:54 | EDPHY ---
H & P Time Seen by Provider: 06/08/18 09:48 HPI/ROS: Chief complaint. Back pain HPI. 37-year-old female with right mid back pain since last night. No injury. It feels tight and spasm me. It hurts to move. She has had previous sciatica and low back pain but not to the mid back previously. No urinary symptoms. No fever. Took 800 mg ibuprofen this morning. No radiation to legs. No bowel or bladder symptoms. No chest pain, shortness of breath, abdominal pain ROS 10 systems were reviewed and negative with the exception of the elements mentioned in the history of present illness Past Medical/Surgical History: Cholecystectomy, hysterectomy, appendectomy, bowel resection Social History: , daily smoker, no alcohol Smoking Status: Current every day smoker Physical Exam: General Appearance: Alert well-developed female mild distress vital signs are stable Eyes: Pupils equal and round no pallor or injection. ENT, Mouth: Mucous membranes are moist. Respiratory: There are no retractions, lungs are clear to auscultation. Cardiovascular: Regular rate and rhythm. Gastrointestinal: Abdomen is soft and nontender, no masses, bowel sounds normal. Neurological: Awake and alert, sensory and motor exams grossly normal. Skin: Warm and dry, no rashes. Musculoskeletal: Neck is supple nontender. Tender to palpation in the right mid thoracic back. No tenderness over C, T, L-spine. Extremities symmetrical, full range of motion. Psychiatric: Patient is oriented X 3, there is no agitation. Constitutional: Initial Vital Signs Temperature (C) 36.5 C 06/08/18 09:42 Heart Rate 81 06/08/18 09:42 Respiratory Rate 18 06/08/18 09:42 Blood Pressure 121/73 H 06/08/18 09:42 O2 Sat (%) 99 06/08/18 09:42 O2 Delivery Mode Room Air Allergies/Adverse Reactions: No Known Allergies Allergy (Verified 06/08/18 09:42) Home Medications: Medication Instructions Recorded Cyclobenzaprine [Flexeril 10 MG 10 mg PO TID PRN #15 tab 06/08/18 (*)] Hydrocodone/APAP 5/325 [[place] 1 each PO Q4-6PRN PRN #10 tab 06/08/18 5/325 (*)] Lidocaine 4%/Menthol 1% [Icy Hot 1 patch TD DAILY #7 patch 06/08/18 Lidocaine/Menthol 4%/1% Patch (*)] Medical Decision Making Procedures: Tylenol, Valium orally. Lidocaine patch ED Course/Re-evaluation: Re-evaluation 11:00 a.m.. Patient is stable. Continued to have pain and spasms but improved. Patient and I discussed treatment plan including criteria for return importance of follow-up and further evaluation. She expresses understanding and agreement Differential Diagnosis: I think this is muscular back pain. No evidence for cauda equina syndrome. I do not believe this represents HNP - Data Points Medications Given: Discontinued Medications Acetaminophen (Tylenol) 1,000 mg PO EDNOW ONE Stop: 06/08/18 10:01 Last Admin: 06/08/18 10:08 Dose: 1,000 mg Diazepam (Valium) 5 mg PO EDNOW ONE Stop: 06/08/18 10:01 Last Admin: 06/08/18 10:08 Dose: 5 mg Miscellaneous Medication (Icy Hot Lidocaine/Menthol 4%/1% Patch) 1 patch TD EDNOW ONE Stop: 06/08/18 10:01 Last Admin: 06/08/18 10:09 Dose: 1 patch Departure - Departure Disposition: Home, Routine, Self-Care Clinical Impression: Acute thoracic back pain Qualifiers: Back pain laterality: right Qualified Code(s): M54.6 - Pain in thoracic spine Condition: Good Instructions: Thoracic Back Strain (ED) Additional Instructions: Ice to your back next 24 hr and then use heat. Easy activity. Flexeril as muscle relaxer. Ibuprofen 600 mg every 6 hr for discomfort. Hydrocodone in addition if necessary. Lidocaine patches to sore area Return for worsening pain, fever, bowel or bladder symptoms, leg weakness Recheck in 2 days if not improving Referrals: Thais Cosby, [employer] [Primary Care Provider] - 2-3 days, if not improved Prescriptions: Cyclobenzaprine [Flexeril 10 MG (*)] 10 mg PO TID PRN #15 tab PRN Reason: Spasms Hydrocodone/APAP 5/325 [[place] 5/325 (*)] 1 each PO Q4-6PRN PRN #10 tab PRN Reason: Pain, Moderate Lidocaine 4%/Menthol 1% [Icy Hot Lidocaine/Menthol 4%/1% Patch (*)] 1 patch TD DAILY #7 patch
[2018-06-08] MEDS ORDERED: LIDOCAINE 4%/MENTHOL 1% PATCH TD ONE (10:00)
[2018-06-08] MEDS ORDERED: ACETAMINOPHEN 500 MG TAB PO ONE (10:00)
[2018-06-08] MEDS ORDERED: DIAZEPAM 5 MG TAB PO ONE (10:00)
[2018-06-08 10:46] VITALS: BP 108/78
[2018-06-08] MEDS ORDERED: PATCH REMOVAL 1 EA PATCH TD SCH (21:00)
== END 2018-06-08 11:19 | disposition home or self-care (01) ==
DX: M54.6 Pain in thoracic spine (principal)